=== PATIENT | female | born 1955 | race American Indian/Alaskan Native ===

== ENCOUNTER 2017-04-06 10:18 | Emergency (ER) | payer BC, OTHER ==
[2017-04-06 10:31] VITALS: BP 117/51
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
== END 2017-04-06 11:08 | disposition home or self-care (01) ==
LOC: DL.ED 10:18
DX: N39.0 Urinary tract infection, site not specified (principal); Z88.1 Allergy status to other antibiotic agents; Z88.5 Allergy status to narcotic agent; Z88.0 Allergy status to penicillin; Z88.2 Allergy status to sulfonamides
CPT/HCPCS: 81001; 87086; 87088; 87186; 99283

== ENCOUNTER 2019-10-13 10:48 | Emergency (ER) | payer BC ==
[2019-10-13 11:33] VITALS: BP 131/54; PULSE 67
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
[2019-10-13] MEDS: Ondansetron 4 MG Tab.DIS PO ONE (12:09)
[2019-10-13 12:36] LABS: ANION GAP 11.2 mEq/L (7-13)
--- NOTE | 2019-10-13 12:46 | CT ---
EXAMINATION: Head wo Cont SEX: Female AGE: 64 years CLINICAL HISTORY: 64-year-old female emergency department complaining of dizziness and "pressure" right side of the head. Scan technique: Volume acquisition of data unenhanced CT scan of the head and brain obtained with the patient lying supine the Siemens multi slice scanner [place], [place]. All data archived in the PACS system for storage, reformatting axial/sagittal/coronal planes and study (bone/brain windows). Interpretation: 1. Subtle mucoperiosteal thickening (inflammation) maxillary antra greatest on the left. Nasal septum midline. No sign of pathologic air-fluid levels and the remaining paranasal and mastoid sinuses are clear. 2. Uniformly thick bony calvarium. No sign of pathologic skeletal lesion, skull fracture or underlying brain contusion. 3. No abnormal extracerebral/intracranial epidural or subdural hematoma. 4. Symmetric richards-white matter pattern with underlying mirror-image normal ventricular system. Symmetric choroid plexus. 5. No supratentorial or posterior fossa mass lesion. Brainstem and cerebellum unremarkable. 6. No focal areas of ischemic infarct. No sign of acute intracerebral, intraventricular or subarachnoid bleed. CONCLUSION: Mild maxillary sinusitis. No intracranial abnormality.
--- NOTE | 2019-10-13 12:49 | CT ---
EXAMINATION: Max Facial Sinus wo Cont SEX: Female AGE: 64 years CLINICAL HISTORY: 64-year-old female emergency department complaining of "pressure" right side of the head face and ear. Dizziness. "No intracranial abnormality" CT of the head. Scan technique: Volume acquisition of data unenhanced scan of the paranasal and mastoid sinuses obtained with patient lying supine on the Siemens multi slice CT scanner [place], [place]. All data archived in the PACS system for storage, reformatting axial/sagittal/coronal planes and study (bone/soft tissue windows). Interpretation: 1. Asymmetric mucoperiosteal inflammatory thickening of the left maxillary antrum. 2. The other paranasal sinuses are satisfactorily pneumatized and clear. No antral mass, pathologic air-fluid level or polyps. 3. Symmetric clear pneumatization of the mastoid sinuses. No sign of tumor, bony wall destruction or inflammation. 4. Nasal septum is straight in the midline. 5. No foreign bodies. No facial bone fracture. Normal TMJs. CONCLUSION: Inflammatory changes left maxillary antrum (sinusitis). Otherwise negative CT scan facial bones and sinuses.
== END 2019-10-13 13:25 | disposition home or self-care (01) ==
LOC: DL.ED 10:48
DX: J01.90 Acute sinusitis, unspecified (principal); Z88.1 Allergy status to other antibiotic agents; Z88.6 Allergy status to analgesic agent; Z88.0 Allergy status to penicillin; Z88.2 Allergy status to sulfonamides; Z91.018 Allergy to other foods
CPT/HCPCS: 36415; 70450; 70486; 80053; 84484; 85025; 93005; 99284-25; A9270-GY

== ENCOUNTER 2022-04-20 11:45 | Emergency (ER) | payer BC ==
[2022-04-20] MEDS ORDERED: Ciprofloxacin 500 MG Tab PO ONE (11:46)
[2022-04-20] MEDS ORDERED: Phenazopyridine 95 MG Tab PO ONE (11:46)
[2022-04-20] MEDS ORDERED: Ondansetron 4 MG Tab.DIS PO ONE (11:46)
[2022-04-20] MEDS ORDERED: Ciprofloxacin 500 MG Tab ONE (13:52)
[2022-04-20] MEDS ORDERED: Phenazopyridine 95 MG Tab ONE (13:53)
[2022-04-20] MEDS ORDERED: Ondansetron 4 MG Tab.DIS ONE (14:20)
[2022-04-20 14:47] VITALS: BP 114/67; PULSE 75
== END 2022-04-20 14:47 | disposition home or self-care (01) ==
LOC: DL.ED 11:45
DX: N39.0 Urinary tract infection, site not specified (principal); Z88.0 Allergy status to penicillin; Z88.1 Allergy status to other antibiotic agents; Z88.8 Allergy status to other drugs, medicaments and biological substances
CPT/HCPCS: 81001; 87086; 99284; A9270

== ENCOUNTER 2024-07-11 15:02 | Emergency (ER) | payer BC, OTHER ==
[2024-07-11 15:16] VITALS: BP 103/55; PULSE 73
[2024-07-11] MEDS: Take Home: Levofloxacin 500 MG Tab, 3 Tab Pack PO ONE (15:46)
[2024-07-11] MEDS: Hydrocortisone/Neomycin/Polymyxin B Otic Susp 10 ML Bottle EARRT ONE (15:46)
[2024-07-11] MEDS: Acetaminophen/HYDROcodone 325-5 MG Tab PO ONE (15:48)
== END 2024-07-11 15:55 | disposition home or self-care (01) ==
LOC: DL.ED 15:02
DX: H60.391 Other infective otitis externa, right ear (principal); H66.001 Acute suppurative otitis media without spontaneous rupture of ear drum, right ear; Z88.1 Allergy status to other antibiotic agents; Z88.0 Allergy status to penicillin; Z88.8 Allergy status to other drugs, medicaments and biological substances
CPT/HCPCS: 99282; A9270